=== PATIENT | female | born 1965 | race African-American/Black ===

== ENCOUNTER → 2021-02-17 | Outpatient (CLI) | payer OTHER ==
--- NOTE | 2021-02-17 17:26 | RAD ---
Right hand 2 views: Reason for examination: Right hand pain. No acute fracture or dislocation is seen. The bone density appears to be normal. No abnormal perioste al reaction is seen. Joint spaces are maintained. IMPRESSION: No acute abnormality evident in the right hand. Electronically signed by: Cyndy Ridley MD (02/17/2021 5:23 PM) [email or web address]
--- NOTE | 2021-02-17 17:27 | RAD ---
Lumbar spine 2 views: Reason for examination: Back pain. Sciatica. The vertebral bodies of the lumbar spine are normally aligned anteriorly and posteriorly. No acute fr acture or subluxation is evident. Posterior elements appear to be intact. No acute abnormality seen a t the sacrum or sacroiliac joints. The intervertebral discs show moderate narrowing of the L5-S1 disc space. Remaining intervertebral discs are maintained. IMPRESSION: Moderate narrowing of the L5-S1 disc space. No acute fracture or subluxation evident. Electronically signed by: Cyndy Ridley MD (02/17/2021 5:25 PM) [email or web address]
== END ==
LOC: RAD 11:50
PROVIDERS: ATTEND Anesthesiology Pain Medicine
DX: M48.07 Spinal stenosis, lumbosacral region (principal); M79.641 Pain in right hand; M54.30 Sciatica, unspecified side
CPT/HCPCS: 72100; 73120